=== PATIENT | female | born 1985 | race Caucasian/White ===

== ENCOUNTER 2022-10-03 12:44 | Outpatient (CLI) | payer BC | END 2022-10-03 23:59 | disposition home or self-care (01) | LOC: CARD DIAG 12:44 | PROVIDERS: ATTEND Physician Assistant | DX: I34.81 Nonrheumatic mitral (valve) annulus calcification (principal); R07.9 Chest pain, unspecified; R06.02 Shortness of breath | CPT/HCPCS: 93306 ==

== ENCOUNTER 2023-06-29 00:14 | Outpatient (CLI) | payer BC ==
[~2023-06-29 00:14] MED LIST: COL0.6T PO; IBUP-1594 PO; LORA-269 PO; POTA20PA31 PO
[2023-06-29 17:38] LABS: BASOPHILS # (AUTO) 0.1 X10'3 (0-0.2); BASOPHILS % (AUTO) 1.1 % (0-1); EOSINOPHILS # (AUTO) 0.2 X10'3 (0-0.9); EOSINOPHILS % (AUTO) 3.1 % (0-6); HEMOGLOBIN 13.9 g/dl (12.0-16.0); LYMPHOCYTES # (AUTO) 1.9 X10'3 (1.1-4.8); LYMPHOCYTES % (AUTO) 27.9 % (21-51); MEAN CORPUSCULAR HEMOGLOBIN 28.5 PG (27.0-31.0); MEAN CORPUSCULAR VOLUME 86.4 FL (78-98); MEAN PLATELET VOLUME 9.7 FL (7.4-10.4); MONOCYTES # (AUTO) 0.5 X10'3 (0-0.9); MONOCYTES % (AUTO) 6.6 % (2-12); NEUTROPHILS # (AUTO) 4.2 X10'3 (1.8-7.7); NEUTROPHILS % (AUTO) 61.3 % (42-75); PLATELET COUNT 291 X10'3 (140-440); RED BLOOD COUNT 4.86 X10'6 (4.20-5.60); RED CELL DISTRIBUTION WIDTH 16.3 % (11.5-14.5); WHITE BLOOD COUNT 6.8 X10'3 (4.5-11.0)
[2023-06-29 17:50] LABS: D-DIMER 0.27 MG/L FEU (0-0.50)
[2023-06-29 18:03] LABS: ASPARTATE AMINO TRANSFERASE 19 U/L (10-37); C-REACTIVE PROTEIN 0.38 MG/DL (0.0-0.5); CHOL/HDL RATIO 2.3 (0.00-4.99); CHOLESTEROL 177 MG/DL (0-200); CREATININE 0.95 MG/DL (0.40-0.90); GLUCOSE 85 MG/DL (70-104); HDL CHOLESTEROL 76 MG/DL (35-60); LDL CHOLESTEROL 87 MG/DL (50-100); THYROID STIMULATING HORMONE 2.98 ulU/ml (0.34-4.50); TRIGLYCERIDES 31 MG/DL (20-135); eGFR 67 ML/MIN
[2023-06-29 18:25] LABS: IRON 113 UG/DL (49-151)
[2023-07-01 08:46] LABS: HBSAG SCREEN Negative (Negative); HEPATITIS C VIRUS ANTIBODY Non Reactive (Non Reactive); HOMOCYSTEINE, PLASMA 6.5 umol/L (0.0-14.5); INSULIN 5.6 uIU/mL (2.6-24.9); RUBELLA ANTIBODIES, IGG 9.21 index (Immune >0.99); SEX HORM BINDING GLOB, SERUM 47.4 nmol/L (24.6-122.0); TESTOSTERONE, SERUM 50 ng/dL (8-60); VARICELLA-ZOSTER VIRUS AB, IGG >4000 index (Immune >165); VITAMIN D, 25-HYDROXY 51.4 ng/mL (30.0-100.0)
[2023-07-10 21:28] LABS: TESTOSTERONE, FREE, DIRECT 2.3 pg/mL (0.0-4.2)
== END 2023-06-29 23:59 | disposition home or self-care (01) ==
LOC: LAB 00:14
PROVIDERS: ATTEND Family Medicine
DX: E78.5 Hyperlipidemia, unspecified (principal); R79.89 Other specified abnormal findings of blood chemistry; R68.82 Decreased libido; D72.829 Elevated white blood cell count, unspecified; E53.8 Deficiency of other specified B group vitamins; N80.9 Endometriosis, unspecified
CPT/HCPCS: 36415; 80061; 82306; 82565; 82607; 82627; 82947; 83036; 83090; 83525; 83540; 84270; 84402; 84403; 84439; 84443; 84450; 85025; 85379; 86140; 86592; 86762; 86803; 86885; 86900; 86901; 87340; 87389; 87522

== ENCOUNTER 2023-08-10 17:14 | Outpatient (CLI) | payer BC ==
[2023-08-10 18:02] LABS: BASOPHILS # (AUTO) 0.1 X10'3 (0-0.2); BASOPHILS % (AUTO) 0.6 % (0-1); EOSINOPHILS # (AUTO) 0.5 X10'3 (0-0.9); EOSINOPHILS % (AUTO) 5.4 % (0-6); HEMATOCRIT 40.3 % (35.0-45.0); HEMOGLOBIN 13.2 g/dl (12.0-16.0); LYMPHOCYTES # (AUTO) 2.3 X10'3 (1.1-4.8); LYMPHOCYTES % (AUTO) 24.1 % (21-51); MEAN CORPUSCULAR HEMOGLOBIN 28.4 PG (27.0-31.0); MEAN CORPUSCULAR HGB CONC 32.8 g/dL (33.0-36.5); MEAN CORPUSCULAR VOLUME 86.7 FL (78-98); MEAN PLATELET VOLUME 10.9 FL (7.4-10.4); MONOCYTES # (AUTO) 0.6 X10'3 (0-0.9); MONOCYTES % (AUTO) 5.9 % (2-12); NEUTROPHILS # (AUTO) 6.2 X10'3 (1.8-7.7); PLATELET COUNT 244 X10'3 (140-440); RED BLOOD COUNT 4.65 X10'6 (4.20-5.60); RED CELL DISTRIBUTION WIDTH 14.5 % (11.5-14.5); WHITE BLOOD COUNT 9.6 X10'3 (4.5-11.0)
[2023-08-10 18:32] LABS: ASPARTATE AMINO TRANSFERASE 15 U/L (10-37); THYROID STIMULATING HORMONE 2.81 ulU/ml (0.34-4.50); eGFR 71 ML/MIN
[2023-08-10 20:54] LABS: PLATELET ESTIMATE NORMAL
[2023-08-10 20:56] LABS: LARGE PLATELETS FEW
[2023-08-10 20:57] LABS: TEAR DROP CELLS FEW
== END 2023-08-10 23:59 | disposition home or self-care (01) ==
LOC: LAB 17:14
PROVIDERS: ATTEND Family Medicine
DX: N97.9 Female infertility, unspecified (principal)
CPT/HCPCS: 36415; 82397; 82565; 84439; 84443; 84450; 85008; 85025; 86885; 86900; 86901; 87389; 87491

== ENCOUNTER 2023-11-30 05:39 | Day surgery (SDC) | payer BC, OTHER ==
[2023-11-24 11:39] LABS: BASOPHILS % (AUTO) 0.5 % (0-1); EOSINOPHILS # (AUTO) 0.2 X10'3 (0-0.9); EOSINOPHILS % (AUTO) 2.4 % (0-6); HEMATOCRIT 39.3 % (35.0-45.0); HEMOGLOBIN 12.9 g/dl (12.0-16.0); LYMPHOCYTES # (AUTO) 2.2 X10'3 (1.1-4.8); LYMPHOCYTES % (AUTO) 31.5 % (21-51); MEAN CORPUSCULAR HEMOGLOBIN 27.8 PG (27.0-31.0); MEAN CORPUSCULAR HGB CONC 32.8 g/dL (33.0-36.5); MEAN CORPUSCULAR VOLUME 84.8 FL (78-98); MEAN PLATELET VOLUME 9.1 FL (7.4-10.4); MONOCYTES # (AUTO) 0.5 X10'3 (0-0.9); MONOCYTES % (AUTO) 7.5 % (2-12); NEUTROPHILS # (AUTO) 4.1 X10'3 (1.8-7.7); NEUTROPHILS % (AUTO) 58.1 % (42-75); PLATELET COUNT 445 X10'3 (140-440); RED BLOOD COUNT 4.64 X10'6 (4.20-5.60)
[2023-11-24 11:56] LABS: ALANINE AMINOTRANSFERASE 22 U/L (12-78); ALBUMIN 3.1 G/DL (3.4-5.0); ALBUMIN/GLOBULIN RATIO 0.6 (1.1-1.5); ALKALINE PHOSPHATASE 71 IU/L (46-116); ANION GAP 2 (8-16); ASPARTATE AMINO TRANSFERASE 16 U/L (10-37); BILIRUBIN,TOTAL 0.3 MG/DL (0.1-1.0); BLOOD UREA NITROGEN 14 MG/DL (7-18); BUN/CREATININE RATIO 18.4 (10.0-20.0); CALCIUM 8.7 MG/DL (8.5-10.1); CHLORIDE 105 MMOL/L (99-107); CREATININE 0.76 MG/DL (0.40-0.90); GLUCOSE 80 MG/DL (70-104); POTASSIUM 3.8 MMOL/L (3.5-5.1); SODIUM 138 MMOL/L (135-145); TOTAL CARBON DIOXIDE 30.7 MMOL/L (24-32); TOTAL PROTEIN 7.9 G/DL (6.4-8.2); eGFR 87 ML/MIN
[2023-11-24 12:00] LABS: HCG SERUM QL NEGATIVE
[~2023-11-30] VITALS: Ht 162.6 cm; Wt 74.4 kg
[2023-11-30] VITALS (11 sets, daily range): BP systolic 93–145; BP diastolic 69–95; PULSE 67–85; RESP 16–22; TEMP 98.1; O2SAT 96–100
[~2023-11-30 05:39] MED LIST changes: -COL0.6T PO; +DOCU-148 PO; +ELDERBERRY GUMMY; -IBUP-1594 PO; -LORA-269 PO; +MAGNESIUM CHELATED; -POTA20PA31 PO; +PRENATAL VITAMIN; +VITAMIN B 12; +[UNRECOGNIZED DRUG - OTHER]; +[UNRECOGNIZED DRUG - OTHER]
[2023-11-30] MEDS: famotidine 20mg tablet PO ONE (06:42)
[2023-11-30] MEDS: ringers solution, lacted 1,000 ML IV SCH (06:42)
[2023-11-30] MEDS ORDERED: BUPIVAcaine/PF 2.5mg/ml (0.25%) 10ml vial ONE (06:45)
[2023-11-30] MEDS ORDERED: proCHLORperazine 10 MG/2 ml inj IV PRN (07:35)
[2023-11-30] MEDS ORDERED: morphine 4 MG/ML inj SYRINge IV PRN (07:35)
[2023-11-30] MEDS ORDERED: ringers solution, lacted 1,000 ML IV SCH (07:35)
[2023-11-30] MEDS ORDERED: meperidine/PF 25mg/ml syringe IV PRN ×2 (07:35)
[2023-11-30] MEDS ORDERED: labetalol 20mg/4ml (5mg/ml) syringe IV PRN (07:35)
[2023-11-30] MEDS ORDERED: enalaprilat dihydrate 2.5mg/2ml vial IV PRN (07:35)
[2023-11-30 07:37] LABS: HCG SERUM QL NEGATIVE
[2023-11-30] MEDS ORDERED: sevoflurane 250ml liquid IH ONE (07:38)
[2023-11-30] MEDS ORDERED: fentaNYL/PF 50MCG/1 ML 2ML syringe ONE (07:44)
[2023-11-30] MEDS ORDERED: propofol inj 20 ML IV ONE (07:44)
[2023-11-30] MEDS ORDERED: LIDOcaine 2% (20mg/ml) 5ml vial ONE (07:44)
[2023-11-30] MEDS ORDERED: midazolam 1 mg/ML 2ml injection ONE (07:44)
[2023-11-30] MEDS ORDERED: rocuronium 10mg/ml inj IV ONE (07:49)
[2023-11-30] MEDS ORDERED: ondansetron/PF 4mg/2ml inj ONE (08:10)
[2023-11-30] MEDS ORDERED: meperidine/PF 25mg/ml syringe ONE (09:02)
[2023-11-30] MEDS ORDERED: ketorolac trometh. 30mg/ml inj. IM ONE (10:00)
[2023-11-30] MEDS: meperidine/PF 25mg/ml syringe IV PRN (10:05)
[2023-11-30] MEDS ORDERED: oxyCODONE/APAP 5-325mg tablet PO ONE (10:10)
[2023-11-30] MEDS: ondansetron/PF 4mg/2ml inj IV PRN (10:23)
[2023-11-30] MEDS: ketorolac trometh. 30mg/ml inj. IV ONE (10:25)
[2023-11-30] MEDS: morphine 2 MG/ML inj. syringe IV PRN (10:44)
== END 2023-11-30 11:15 | disposition home or self-care (01) ==
LOC: PAS 05:39
PROVIDERS: ATTEND Obstetrics & Gynecology
DX: N70.11 Chronic salpingitis (principal); N80.30 Endometriosis of pelvic peritoneum, unspecified; R93.89 Abnormal findings on diagnostic imaging of other specified body structures; Z79.899 Other long term (current) drug therapy; Z98.890 Other specified postprocedural states
CPT/HCPCS: 36415; 58558; 58661; 58662; 80053; 82948; 84703; 85025; J1100; J1885; J2175; J2250; J2270; J2405; J2704; J3010; J3490; J7030; J7120; Z7506; Z7508; Z7512; A4355; A4618; A6250; A6258

== ENCOUNTER 2024-03-27 11:10 | Outpatient (CLI) | payer BC | END 2024-03-27 23:59 | disposition home or self-care (01) | LOC: LAB 11:10 | DX: Z31.49 Encounter for other procreative investigation and testing (principal) | CPT/HCPCS: 36415; 84443 ==

== ENCOUNTER 2024-04-21 07:07 | Outpatient (CLI) | payer BC | END 2024-04-21 23:59 | disposition home or self-care (01) | LOC: LAB 07:07 | DX: Z32.00 Encounter for pregnancy test, result unknown (principal) | CPT/HCPCS: 36415; 84702 ==

== ENCOUNTER 2024-04-23 07:24 | Outpatient (CLI) | payer BC ==
[2024-04-23 09:55] LABS: THYROID STIMULATING HORMONE 2.89 ulU/ml (0.34-4.50)
== END 2024-04-23 23:59 | disposition home or self-care (01) ==
LOC: LAB 07:24
DX: Z32.00 Encounter for pregnancy test, result unknown (principal)
CPT/HCPCS: 36415; 84443; 84702

== ENCOUNTER 2024-05-01 10:06 | Outpatient (CLI) | payer BC | END 2024-05-01 23:59 | disposition home or self-care (01) | LOC: RAD 10:06 | PROVIDERS: ATTEND Obstetrics & Gynecology Reproductive Endocrinology | DX: O09.01 Supervision of pregnancy with history of infertility, first trimester (principal) | CPT/HCPCS: 36415; 84702 ==

== ENCOUNTER 2024-06-13 08:09 | Outpatient (CLI) | payer BC ==
[2024-06-13 09:50] LABS: BASOPHILS % (AUTO) 0.2 % (0-1); EOSINOPHILS # (AUTO) 0.1 X10'3 (0-0.9); EOSINOPHILS % (AUTO) 1.3 % (0-6); HEMATOCRIT 42.3 % (35.0-45.0); HEMOGLOBIN 14.6 g/dl (12.0-16.0); LYMPHOCYTES # (AUTO) 1.6 X10'3 (1.1-4.8); MEAN PLATELET VOLUME 9.7 FL (7.4-10.4); WHITE BLOOD COUNT 8.1 X10'3 (4.5-11.0)
[2024-06-13 09:52] LABS: LYMPHOCYTES % (AUTO) 20.2 % (21-51); MEAN CORPUSCULAR HEMOGLOBIN 30.3 PG (27.0-31.0); MEAN CORPUSCULAR HGB CONC 34.5 g/dL (33.0-36.5); MEAN CORPUSCULAR VOLUME 87.8 FL (78-98); MONOCYTES # (AUTO) 0.4 X10'3 (0-0.9); MONOCYTES % (AUTO) 5.3 % (2-12); NEUTROPHILS # (AUTO) 5.9 X10'3 (1.8-7.7); PLATELET COUNT 267 X10'3 (140-440); RED BLOOD COUNT 4.82 X10'6 (4.20-5.60); RED CELL DISTRIBUTION WIDTH 15.3 % (11.5-14.5)
[2024-06-13 10:04] LABS: HEMOGLOBIN A1C 4.9 % (4.5-6.2)
[2024-06-13 10:13] LABS: FREE T4 (FREE THYROXINE) 0.8 NG/DL (0.73-1.40); THYROID STIMULATING HORMONE 1.16 ulU/ml (0.34-4.50)
[2024-06-14 11:10] LABS: RUBELLA ANTIBODIES, IGG 8.63 index (Immune >0.99); VARICELLA-ZOSTER VIRUS AB, IGG Reactive (Non Reactive)
[2024-06-15 05:16] LABS: HBSAG SCREEN Negative (Negative); HEPATITIS C VIRUS ANTIBODY Non Reactive (Non Reactive)
== END 2024-06-13 23:59 | disposition home or self-care (01) ==
LOC: LAB 08:09
PROVIDERS: ATTEND Obstetrics & Gynecology
DX: Z34.81 Encounter for supervision of other normal pregnancy, first trimester (principal)
CPT/HCPCS: 36415; 83036; 84439; 84443; 85025; 86592; 86762; 86803; 86885; 86900; 86901; 87088; 87340; 87389; 87522

== ENCOUNTER 2024-06-16 03:13 | Emergency (ER) | payer BC ==
[~2024-06-16] VITALS: Ht 162.6 cm; Wt 88.0 kg
[2024-06-16 03:48] LABS: BILIRUBIN,URINE NEGATIVE (Neg); CLARITY,URINE SLIGHTLY CLOUDY (Clear); COLOR,URINE YELLOW (Yellow); GLUCOSE, URINE NEGATIVE (Neg); KETONES,URINE NEGATIVE (Neg); LEUKOCYTE ESTERASE ,URINE NEGATIVE (Neg); NITRITES, URINE NEGATIVE (Neg); OCCULT BLOOD,URINE NEGATIVE (Neg); PROTEIN,URINE NEGATIVE (Neg); UROBILINOGEN,URINE 0.2 E.U/dL (0.2-1.0)
[2024-06-16 03:53] LABS: UA COLLECTION TYPE NON-SPECIFIED
[2024-06-16 03:54] LABS: BACTERIA,URINE FEW /HPF (Neg); RBC,URINE 0-2 /HPF (0-2); SQUAMOUS EPITHELIAL CELL,UR MANY /LPF (FEW); WBC,URINE 0-4 /HPF (0-4)
[2024-06-16 03:55] LABS: MUCUS STRANDS NONE SEEN /LPF (Neg)
[2024-06-16] MEDS: LidoCAINE 2% Topical Jelly 11mL syringe (UROJET) TOP ONE (04:03)
[2024-06-16] MEDS ORDERED: ibuprofen tablet 400 MG TABLET PO ONE (04:40)
[2024-06-16 04:52] LABS: URINE HCG POSITIVE (NEG)
[2024-06-16 05:13] LABS: BASOPHILS % (AUTO) 0.1 % (0-1); EOSINOPHILS # (AUTO) 0.1 X10'3 (0-0.9); EOSINOPHILS % (AUTO) 0.5 % (0-6); HEMATOCRIT 40.9 % (35.0-45.0); HEMOGLOBIN 13.9 g/dl (12.0-16.0); LYMPHOCYTES # (AUTO) 0.6 X10'3 (1.1-4.8); MEAN CORPUSCULAR HEMOGLOBIN 29.8 PG (27.0-31.0); MEAN CORPUSCULAR VOLUME 87.7 FL (78-98); MEAN PLATELET VOLUME 10.1 FL (7.4-10.4); MONOCYTES # (AUTO) 0.9 X10'3 (0-0.9); MONOCYTES % (AUTO) 7.5 % (2-12); NEUTROPHILS # (AUTO) 10.1 X10'3 (1.8-7.7); NEUTROPHILS % (AUTO) 86.9 % (42-75); PLATELET COUNT 231 X10'3 (140-440); RED BLOOD COUNT 4.66 X10'6 (4.20-5.60); WHITE BLOOD COUNT 11.6 X10'3 (4.5-11.0)
[2024-06-16 05:47] LABS: ALBUMIN 2.8 G/DL (3.4-5.0); ANION GAP 12 (8-16); BLOOD UREA NITROGEN 12 MG/DL (7-18); CALCIUM 9.1 MG/DL (8.5-10.1); CHLORIDE 102 MMOL/L (99-107); GLUCOSE 100 MG/DL (70-104); POTASSIUM 3.5 MMOL/L (3.5-5.1); SODIUM 137 MMOL/L (135-145); TOTAL CARBON DIOXIDE 22.6 MMOL/L (24-32); eCRCL 84 ML/MIN; eGFR 81 ML/MIN
[2024-06-16 05:55] LABS: BETA HCG,QUANTITATIVE 67706 mIU/ml
[2024-06-16 08:49] VITALS: BP 145/70; PULSE 85; RESP 16; TEMP 98; O2SAT 100
== END 2024-06-16 08:51 | disposition home or self-care (01) ==
LOC: EEVIPCON 03:14 → ER 03:14
DX: O99.891 Other specified diseases and conditions complicating pregnancy (principal); R33.9 Retention of urine, unspecified; Z3A.12 12 weeks gestation of pregnancy; O13.1 Gestational [pregnancy-induced] hypertension without significant proteinuria, first trimester; K59.00 Constipation, unspecified; F41.9 Anxiety disorder, unspecified; F32.A Depression, unspecified; C18.9 Malignant neoplasm of colon, unspecified; E11.9 Type 2 diabetes mellitus without complications; Z79.899 Other long term (current) drug therapy
CPT/HCPCS: 36415; 51701; 51702; 76801; 80048; 81001; 81025; 84702; 85025; 99284; A4314

== ENCOUNTER 2024-06-28 01:21 | Emergency (ER) | payer BC ==
[~2024-06-28] VITALS: Ht 162.6 cm; Wt 89.0 kg
[2024-06-28] MEDS: LidoCAINE 2% Topical Jelly 11mL syringe (UROJET) TOP ONE (02:25)
[2024-06-28 02:27] LABS: BILIRUBIN,URINE NEGATIVE (Neg); CLARITY,URINE CLEAR (Clear); COLOR,URINE YELLOW (Yellow); GLUCOSE, URINE NEGATIVE (Neg); KETONES,URINE NEGATIVE (Neg); LEUKOCYTE ESTERASE ,URINE NEGATIVE (Neg); NITRITES, URINE NEGATIVE (Neg); OCCULT BLOOD,URINE NEGATIVE (Neg); PROTEIN,URINE NEGATIVE (Neg); UROBILINOGEN,URINE 0.2 E.U/dL (0.2-1.0)
[2024-06-28 02:41] LABS: UA COLLECTION TYPE NON-SPECIFIED
[2024-06-28 03:08] VITALS: BP 120/74; PULSE 76; RESP 14; TEMP 98.2; O2SAT 99
== END 2024-06-28 03:11 | disposition home or self-care (01) ==
LOC: ER 01:21 → EEVIPCON 01:21 → ER 03:11
DX: O99.891 Other specified diseases and conditions complicating pregnancy (principal); I10 Essential (primary) hypertension; F41.9 Anxiety disorder, unspecified; F32.A Depression, unspecified; E11.9 Type 2 diabetes mellitus without complications; F60.0 Paranoid personality disorder; Z85.038 Personal history of other malignant neoplasm of large intestine; Z79.899 Other long term (current) drug therapy; Z3A.00 Weeks of gestation of pregnancy not specified
CPT/HCPCS: 51702; 81003; 99283; 99284; A4314; A4358

== ENCOUNTER 2024-07-07 02:55 | Emergency (ER) | payer BC ==
[~2024-07-07] VITALS: Ht 162.6 cm; Wt 89.4 kg
[2024-07-07 02:57] VITALS: BP 124/75; PULSE 80; RESP 18; TEMP 97.9; O2SAT 98
[2024-07-07] MEDS: LidoCAINE 2% Topical Jelly 11mL syringe (UROJET) TOP ONE (03:31)
== END 2024-07-07 03:25 | disposition home or self-care (01) ==
LOC: ER 02:55 → EEVIPCON 02:55 → ER 03:25
DX: O26.892 Other specified pregnancy related conditions, second trimester (principal); E66.9 Obesity, unspecified; R33.9 Retention of urine, unspecified; E11.9 Type 2 diabetes mellitus without complications; F32.A Depression, unspecified; F41.9 Anxiety disorder, unspecified; F22 Delusional disorders; I10 Essential (primary) hypertension
CPT/HCPCS: 51701; 99283

== ENCOUNTER 2024-09-25 07:13 | Outpatient (CLI) | payer BC ==
[2024-09-25 07:47] LABS: BASOPHILS % (AUTO) 0.2 % (0-1); EOSINOPHILS # (AUTO) 0.2 X10'3 (0-0.9); EOSINOPHILS % (AUTO) 1.6 % (0-6); HEMATOCRIT 38.5 % (35.0-45.0); HEMOGLOBIN 12.6 g/dl (12.0-16.0); LYMPHOCYTES # (AUTO) 1.4 X10'3 (1.1-4.8); LYMPHOCYTES % (AUTO) 15.1 % (21-51); MEAN CORPUSCULAR HEMOGLOBIN 29.4 PG (27.0-31.0); MEAN CORPUSCULAR HGB CONC 32.6 g/dL (33.0-36.5); MEAN CORPUSCULAR VOLUME 90.2 FL (78-98); MONOCYTES # (AUTO) 0.9 X10'3 (0-0.9); MONOCYTES % (AUTO) 9.5 % (2-12); NEUTROPHILS # (AUTO) 7.1 X10'3 (1.8-7.7); NEUTROPHILS % (AUTO) 73.6 % (42-75); PLATELET COUNT 221 X10'3 (140-440); RED BLOOD COUNT 4.27 X10'6 (4.20-5.60); RED CELL DISTRIBUTION WIDTH 14.5 % (11.5-14.5); WHITE BLOOD COUNT 9.6 X10'3 (4.5-11.0)
[2024-09-25 08:38] LABS: HIV ANTIBODY 1&2 RAPID NON-REACTIVE (Neg)
== END 2024-09-25 23:59 | disposition home or self-care (01) ==
LOC: LAB 07:13
PROVIDERS: ATTEND Obstetrics & Gynecology
DX: Z34.83 Encounter for supervision of other normal pregnancy, third trimester (principal); Z3A.00 Weeks of gestation of pregnancy not specified
CPT/HCPCS: 36415; 82951; 82952; 84443; 85025; 86592; 86703